=== PATIENT | female | born 1945 | race Caucasian/White ===

== ENCOUNTER 2018-05-17 15:01 | Inpatient (IN) | payer MEDICARE, MEDICAID ==
[~2018-05-17] VITALS: Ht 172.7 cm; Wt 71.8 kg
[2018-05-17] MEDS ORDERED: MORPHINE SULFATE 4 MG/ML CPJ (NOT FOR IM USE) IV STA (16:23)
[2018-05-17] MEDS ORDERED: SODIUM CHLORIDE 0.9% 1,000 ML IV ONE (16:23)
[2018-05-17] MEDS ORDERED: ONDANSETRON HCL 4MG/2ML VIAL IV STA (16:23)
[2018-05-17 16:46] LABS: BASOPHILS % 0.3 % (0.0-2.0); EOSINOPHILS % 0.1 % (0.0-5.0); HEMATOCRIT. 38.4 % (36.0-48.0); HEMOGLOBIN. 12.6 g/dL (12.0-16.0); LYMPHOCYTES % 8.6 % (20.0-50.0); MEAN CORPUSCULAR HEMOGLOBIN 28.9 pg (28.0-32.0); MEAN CORPUSCULAR VOLUME 87.9 fL (81.0-99.0); MEAN PLATELET VOLUME 9.3 fl (7.4-10.4); MONOCYTES % 3.1 % (2.0-8.0); NEUTROPHILS % 87.9 % (40.0-76.0); PLATELET 312 x1000/uL (130-400); RED BLOOD CELL COUNT 4.37 mill/uL (4.2-5.4); RED CELL DISTRIBUTION WIDTH 14.7 % (11.6-14.6)
[2018-05-17 16:52] LABS: CHLORIDE 101 mEq/L (98-107)
[2018-05-17 16:53] LABS: INR 2.8; PROTHROMBIN TIME 27.6 sec (9.1-11.1)
[2018-05-17 17:03] LABS: CREATINE KINASE 137 IU/L (26-192); ETHANOL BLOOD < 10 mg/dL
[2018-05-17 17:14] LABS: CLARITY URINE CLEAR (CLEAR); COLOR URINE YELLOW (YELLOW); KETONES URINE 1+ (NEGATIVE); LEUKOCYTE ESTERASE URINE NEGATIVE (NEGATIVE); NITRITE URINE NEGATIVE (NEGATIVE); OCCULT BLOOD URINE 2+ (NEGATIVE); PH URINE 6.5 (4.5-8.0); PROTEIN URINE NEGATIVE (NEGATIVE); SPECIFIC GRAVITY URINE 1.022 (1.005-1.030); UROBILINOGEN URINE 0.2 E.U./dL (0.2-1.0)
[2018-05-17 17:28] LABS: *AMPHETAMINES SCREEN URINE NEGATIVE (NEGATIVE); *BARBITURATES SCREEN URINE NEGATIVE (NEGATIVE); *BENZODIAZEPINES SCREEN URINE NEGATIVE (NEGATIVE)
[2018-05-17 17:29] LABS: *COCAINE SCREEN URINE NEGATIVE (NEGATIVE); METHADONE URINE SCREEN NEGATIVE (NEGATIVE); OPIATES URINE SCREEN NEGATIVE (NEGATIVE); PHENCYCLIDINE URINE SCREEN NEGATIVE (NEGATIVE)
[2018-05-17 18:04] LABS: CANNABINOID URINE SCREEN NEGATIVE (NEGATIVE)
[2018-05-17] MEDS ORDERED: PIPERACILLIN/TAZ 3.375G PREMIX 50 ML IV ONE (18:15)
[2018-05-17] MEDS ORDERED: VANCOMYCIN 1 G PREMIX 200 ML IV SCH (18:15)
[2018-05-17] MEDS ORDERED: LORAZEPAM 2MG/ML CPJ IV PRN (22:45)
[2018-05-18] VITALS (25 sets, daily range): BP systolic 95–150; BP diastolic 53–85
[2018-05-18] MEDS: AZITHROMYCIN 500 MG TABLET PO SCH ×2 (01:17→21:32)
[2018-05-18] MEDS ORDERED: BENA20TA10 PO (02:55)
[2018-05-18] MEDS ORDERED: WARF7.5T22 PO (02:55)
[2018-05-18] MEDS ORDERED: SIMV10TA6 PO (02:55)
[2018-05-18] MEDS ORDERED: DILT180C66 PO (02:55)
[2018-05-18] MEDS ORDERED: SOTA80TA PO (02:55)
[2018-05-18] MEDS ORDERED: METF850T2 PO (02:55)
[2018-05-18] MEDS ORDERED: MAGN400T27 MT (02:55)
[2018-05-18] MEDS: IPRATROPIUM/ALBUTEROL 0.5-3(2.5)MG/3ML NEB HHN SCH ×2 (03:59→08:49)
[2018-05-18] MEDS: ACETAMINOPHEN 325MG TABLET PO PRN (04:18)
[2018-05-18] MEDS: CEFTRIAXONE 1 G PREMIX 50 ML IV SCH (04:18)
[2018-05-18] MEDS ORDERED: DEXTROSE 50% WATER 50ML SYRINGE IV PRN (05:30)
[2018-05-18] MEDS: BLOOD SUGAR DIAGNOSTIC STRIP TEST SCH ×4 (06:19→21:25)
[2018-05-18] MEDS: INSULIN LISPRO 100 UNITS/ML SUBCUT SCH ×4 (06:28→21:47)
[2018-05-18] MEDS ORDERED: GADOBENATE DIMEGLUMINE 529 MG/ML 10ML IV ONE (07:11)
[2018-05-18 08:39] LABS: BASOPHILS % 0.4 % (0.0-2.0); HEMATOCRIT. 26.8 % (36.0-48.0); HEMOGLOBIN. 8.8 g/dL (12.0-16.0); LYMPHOCYTES % 18.8 % (20.0-50.0); MEAN CORPUSCULAR VOLUME 88.1 fL (81.0-99.0); MEAN PLATELET VOLUME 9.3 fl (7.4-10.4); MONOCYTES % 3.9 % (2.0-8.0); NEUTROPHILS % 76.9 % (40.0-76.0); PLATELET 280 x1000/uL (130-400); RED BLOOD CELL COUNT 3.04 mill/uL (4.2-5.4); RED CELL DISTRIBUTION WIDTH 14.4 % (11.6-14.6)
[2018-05-18] MEDS ORDERED: ENOXAPARIN 40MG/0.4ML SYR SUBCUT SCH (09:00)
[2018-05-18] MEDS: MORPHINE SULFATE 4 MG/ML CPJ (NOT FOR IM USE) IV PRN ×3 (10:20→21:36)
[2018-05-18 11:29] LABS: CHLORIDE 100 mEq/L (98-107)
[2018-05-18 11:33] LABS: INR 2.2; PROTHROMBIN TIME 21.5 sec (9.1-11.1)
[2018-05-18 11:41] LABS: PHOSPHORUS 4.1 mg/dL (2.5-4.9)
[2018-05-18 11:44] LABS: CREATINE KINASE 109 IU/L (26-192)
[2018-05-18 11:47] LABS: CREATINE KINASE MB FRACTION < 0.5 ng/mL (0.5-3.6)
[2018-05-18] MEDS ORDERED: DIGOXIN 500MCG/2ML AMP IV NR (13:15)
[2018-05-18] MEDS ORDERED: IPRATROPIUM/ALBUTEROL 0.5-3(2.5)MG/3ML NEB HHN PRN (13:45)
[2018-05-18 15:43] LABS: CREATINE KINASE 138 IU/L (26-192)
[2018-05-18 15:44] LABS: CREATINE KINASE MB FRACTION < 1.0 ng/mL (0.5-3.6)
[2018-05-18] MEDS: SOTALOL HCL 80MG TABLET PO SCH (17:18)
[2018-05-18] MEDS: DIGOXIN 500MCG/2ML AMP IV SCH (17:18)
[2018-05-18] MEDS ORDERED: WARFARIN SODIUM 4MG TABLET PO SCH (18:00)
[2018-05-18] MEDS ORDERED: WARFARIN SODIUM 7.5MG TABLET PO SCH (18:00)
[2018-05-18] MEDS: ATORVASTATIN CALCIUM 10MG TABLET PO SCH (21:32)
[2018-05-18] MEDS: DILTIAZEM HCL 60MG TABLET PO SCH (21:34)
[2018-05-19] VITALS (70 sets, daily range): BP systolic 81–158; BP diastolic 37–99
[2018-05-19 01:23] LABS: INR 1.6; PROTHROMBIN TIME 15.5 sec (9.1-11.1)
[2018-05-19] MEDS ORDERED: BACLOFEN 10MG TABLET PO SCH (02:18)
[2018-05-19] MEDS: BACLOFEN 10MG TABLET PO SCH ×3 (02:29→17:05)
[2018-05-19] MEDS: CEFTRIAXONE 1 G PREMIX 50 ML IV SCH (03:04)
[2018-05-19] MEDS: SOTALOL HCL 80MG TABLET PO SCH ×2 (05:00→17:07)
[2018-05-19] MEDS: BLOOD SUGAR DIAGNOSTIC STRIP TEST SCH ×4 (06:11→21:38)
[2018-05-19] MEDS: DILTIAZEM HCL 60MG TABLET PO SCH ×3 (06:11→21:38)
[2018-05-19] MEDS: INSULIN LISPRO 100 UNITS/ML SUBCUT SCH ×4 (06:16→21:46)
[2018-05-19] MEDS: MORPHINE SULFATE 4 MG/ML CPJ (NOT FOR IM USE) IV PRN (07:01)
[2018-05-19 08:02] LABS: BASOPHILS % 0.5 % (0.0-2.0); HEMATOCRIT. 23.6 % (36.0-48.0); HEMOGLOBIN. 7.8 g/dL (12.0-16.0); LYMPHOCYTES % 17.2 % (20.0-50.0); MEAN CORPUSCULAR HEMOGLOBIN 29.1 pg (28.0-32.0); MEAN CORPUSCULAR VOLUME 87.6 fL (81.0-99.0); MEAN PLATELET VOLUME 8.8 fl (7.4-10.4); MONOCYTES % 5.8 % (2.0-8.0); NEUTROPHILS % 76.5 % (40.0-76.0); PLATELET 255 x1000/uL (130-400); RED BLOOD CELL COUNT 2.69 mill/uL (4.2-5.4); RED CELL DISTRIBUTION WIDTH 14.5 % (11.6-14.6)
[2018-05-19 08:11] LABS: CHLORIDE 96 mEq/L (98-107)
[2018-05-19 08:16] LABS: PHOSPHORUS 3.1 mg/dL (2.5-4.9)
[2018-05-19] MEDS: METRONIDAZOLE 500 MG PREMIX 100 ML IV SCH ×2 (10:00→17:05)
[2018-05-19] MEDS: LIDOCAINE 5% PATCH TOP SCH (11:30)
[2018-05-19] MEDS: CEFEPIME 2,000 MG in DEXT 5% WATER 100 ML IV SCH (12:00)
[2018-05-19] MEDS ORDERED: MORPHINE SULFATE 4 MG/ML CPJ (NOT FOR IM USE) IV NR ×3 (12:45→18:30)
[2018-05-19] MEDS ORDERED: MIDAZOLAM HCL 5 MG/ML VIAL IV ONE (12:45)
[2018-05-19] MEDS ORDERED: MIDAZOLAM HCL 2 MG/2 ML VIAL IV NR (12:48)
[2018-05-19] MEDS ORDERED: MIDAZOLAM HCL 2 MG/2 ML VIAL IV PRN (13:00)
[2018-05-19] MEDS: BISACODYL 5MG TABLET PO PRN (13:03)
[2018-05-19] MEDS: INSULIN GLARGINE UD 100 UNITS/ML SYR SUBCUT SCH (13:21)
[2018-05-19] MEDS: IPRATROPIUM/ALBUTEROL 0.5-3(2.5)MG/3ML NEB HHN SCH ×2 (16:08→20:37)
[2018-05-19] MEDS: ACETYLCYSTEINE 100MG/ML 10% VIAL 4ML INH SCH (16:09)
[2018-05-19] MEDS: DOCUSATE SODIUM 100MG CAPSULE PO SCH (17:04)
[2018-05-19] MEDS: DIGOXIN 500MCG/2ML AMP IV SCH (17:48)
[2018-05-19 21:00] LABS: HEMATOCRIT 27.9 % (36.0-48.0); HEMOGLOBIN 9.3 g/dL (12.0-16.0)
[2018-05-19] MEDS: ATORVASTATIN CALCIUM 10MG TABLET PO SCH (21:38)
[2018-05-19] MEDS: GUAIFENESIN 600MG ER TABLET PO SCH (21:38)
[2018-05-20] VITALS (48 sets, daily range): BP systolic 93–142; BP diastolic 46–82
[2018-05-20] MEDS: IPRATROPIUM/ALBUTEROL 0.5-3(2.5)MG/3ML NEB HHN SCH ×6 (00:19→20:42)
[2018-05-20] MEDS: ACETYLCYSTEINE 100MG/ML 10% VIAL 4ML INH SCH ×3 (00:20→15:30)
[2018-05-20] MEDS: MORPHINE SULFATE 4 MG/ML CPJ (NOT FOR IM USE) IV PRN ×4 (00:55→22:11)
[2018-05-20] MEDS: METRONIDAZOLE 500 MG PREMIX 100 ML IV SCH ×3 (02:36→17:38)
[2018-05-20] MEDS: SOTALOL HCL 80MG TABLET PO SCH ×2 (05:44→17:15)
[2018-05-20] MEDS: DILTIAZEM HCL 60MG TABLET PO SCH ×3 (05:45→21:21)
[2018-05-20] MEDS: BLOOD SUGAR DIAGNOSTIC STRIP TEST SCH ×4 (05:46→20:29)
[2018-05-20 06:02] LABS: BASOPHILS % 0.4 % (0.0-2.0); EOSINOPHILS % 0.1 % (0.0-5.0); HEMATOCRIT. 27.2 % (36.0-48.0); HEMOGLOBIN. 9.1 g/dL (12.0-16.0); LYMPHOCYTES % 13.7 % (20.0-50.0); MEAN CORPUSCULAR HEMOGLOBIN 29.6 pg (28.0-32.0); MEAN CORPUSCULAR VOLUME 88.3 fL (81.0-99.0); MEAN PLATELET VOLUME 9.3 fl (7.4-10.4); MONOCYTES % 6.3 % (2.0-8.0); NEUTROPHILS % 79.5 % (40.0-76.0); PLATELET 229 x1000/uL (130-400); RED BLOOD CELL COUNT 3.08 mill/uL (4.2-5.4); RED CELL DISTRIBUTION WIDTH 14.2 % (11.6-14.6)
[2018-05-20] MEDS: INSULIN LISPRO 100 UNITS/ML SUBCUT SCH ×4 (06:07→20:30)
[2018-05-20 06:09] LABS: CHLORIDE 97 mEq/L (98-107)
[2018-05-20] MEDS: LIDOCAINE 5% PATCH TOP SCH (08:35)
[2018-05-20] MEDS: BACLOFEN 10MG TABLET PO SCH ×2 (08:36→17:16)
[2018-05-20] MEDS: GUAIFENESIN 600MG ER TABLET PO SCH ×2 (08:36→20:29)
[2018-05-20] MEDS: DOCUSATE SODIUM 100MG CAPSULE PO SCH ×2 (08:36→17:15)
[2018-05-20] MEDS: INSULIN GLARGINE UD 100 UNITS/ML SYR SUBCUT SCH (09:46)
[2018-05-20 10:40] LABS: HEPATITIS B SURFACE ANTIGEN NEGATIVE
[2018-05-20 11:07] LABS: HEPATITIS B CORE AB IGM NEGATIVE
[2018-05-20 11:09] LABS: HEPATITIS A AB IGM NEGATIVE (NEGATIVE)
[2018-05-20] MEDS: CEFEPIME 2,000 MG in DEXT 5% WATER 100 ML IV SCH (11:31)
[2018-05-20] MEDS: DIGOXIN 500MCG/2ML AMP IV SCH (17:30)
[2018-05-20] MEDS: ATORVASTATIN CALCIUM 10MG TABLET PO SCH (20:29)
[2018-05-20] MEDS: ONDANSETRON HCL 4MG/2ML VIAL IV PRN (22:11)
[2018-05-21] VITALS (48 sets, daily range): BP systolic 107–159; BP diastolic 56–88
[2018-05-21] MEDS: IPRATROPIUM/ALBUTEROL 0.5-3(2.5)MG/3ML NEB HHN SCH ×6 (00:16→20:36)
[2018-05-21] MEDS: ACETYLCYSTEINE 100MG/ML 10% VIAL 4ML INH SCH ×3 (00:17→15:30)
[2018-05-21] MEDS: METRONIDAZOLE 500 MG PREMIX 100 ML IV SCH ×3 (01:44→17:53)
[2018-05-21] MEDS: ONDANSETRON HCL 4MG/2ML VIAL IV PRN (03:45)
[2018-05-21] MEDS: MORPHINE SULFATE 4 MG/ML CPJ (NOT FOR IM USE) IV PRN ×3 (03:46→17:20)
[2018-05-21] MEDS: SOTALOL HCL 80MG TABLET PO SCH ×2 (04:21→17:19)
[2018-05-21] MEDS: DILTIAZEM HCL 60MG TABLET PO SCH ×3 (06:13→22:00)
[2018-05-21] MEDS: INSULIN LISPRO 100 UNITS/ML SUBCUT SCH ×4 (06:14→22:01)
[2018-05-21] MEDS: BLOOD SUGAR DIAGNOSTIC STRIP TEST SCH ×4 (06:14→21:55)
[2018-05-21] MEDS: DOCUSATE SODIUM 100MG CAPSULE PO SCH ×2 (08:48→17:19)
[2018-05-21] MEDS: BACLOFEN 10MG TABLET PO SCH ×2 (08:48→17:19)
[2018-05-21] MEDS: GUAIFENESIN 600MG ER TABLET PO SCH ×2 (08:48→22:02)
[2018-05-21] MEDS: LIDOCAINE 5% PATCH TOP SCH (09:34)
[2018-05-21 11:27] LABS: CHLORIDE 101 mEq/L (98-107)
[2018-05-21 11:28] LABS: BASOPHILS % 0.9 % (0.0-2.0); EOSINOPHILS % 0.2 % (0.0-5.0); HEMOGLOBIN. 8.6 g/dL (12.0-16.0); LYMPHOCYTES % 20.8 % (20.0-50.0); MEAN CORPUSCULAR HEMOGLOBIN 29.9 pg (28.0-32.0); MEAN CORPUSCULAR VOLUME 90.2 fL (81.0-99.0); MEAN PLATELET VOLUME 9.5 fl (7.4-10.4); MONOCYTES % 8.3 % (2.0-8.0); NEUTROPHILS % 69.8 % (40.0-76.0); PLATELET 235 x1000/uL (130-400); RED BLOOD CELL COUNT 2.88 mill/uL (4.2-5.4); RED CELL DISTRIBUTION WIDTH 14.7 % (11.6-14.6)
[2018-05-21] MEDS: CEFEPIME 2,000 MG in DEXT 5% WATER 100 ML IV SCH (12:08)
[2018-05-21] MEDS: INSULIN GLARGINE UD 100 UNITS/ML SYR SUBCUT SCH (12:08)
[2018-05-21] MEDS: LACTULOSE 20G/30ML UDC PO PRN (15:18)
[2018-05-21] MEDS: DIGOXIN 500MCG/2ML AMP IV SCH (17:53)
[2018-05-21] MEDS: ATORVASTATIN CALCIUM 10MG TABLET PO SCH (22:00)
[2018-05-22] VITALS (48 sets, daily range): BP systolic 110–160; BP diastolic 57–82
[2018-05-22] MEDS: ACETYLCYSTEINE 100MG/ML 10% VIAL 4ML INH SCH ×3 (00:40→16:17)
[2018-05-22] MEDS: IPRATROPIUM/ALBUTEROL 0.5-3(2.5)MG/3ML NEB HHN SCH ×6 (00:40→21:22)
[2018-05-22] MEDS: METRONIDAZOLE 500 MG PREMIX 100 ML IV SCH ×3 (01:27→17:18)
[2018-05-22] MEDS: MORPHINE SULFATE 4 MG/ML CPJ (NOT FOR IM USE) IV PRN ×4 (01:28→21:52)
[2018-05-22] MEDS: ONDANSETRON HCL 4MG/2ML VIAL IV PRN (02:32)
[2018-05-22] MEDS: HYDROCODONE/ACETAMINOPHEN 5/325MG TABLET PO PRN (02:33)
[2018-05-22] MEDS: SOTALOL HCL 80MG TABLET PO SCH ×2 (05:08→17:18)
[2018-05-22] MEDS: DILTIAZEM HCL 60MG TABLET PO SCH ×3 (05:09→21:14)
[2018-05-22 05:35] LABS: BASOPHILS % 0.3 % (0.0-2.0); EOSINOPHILS % 0.4 % (0.0-5.0); HEMATOCRIT. 29.5 % (36.0-48.0); HEMOGLOBIN. 9.5 g/dL (12.0-16.0); MEAN CORPUSCULAR HEMOGLOBIN 29.4 pg (28.0-32.0); MONOCYTES % 8.8 % (2.0-8.0); NEUTROPHILS % 72.5 % (40.0-76.0); RED BLOOD CELL COUNT 3.24 mill/uL (4.2-5.4); RED CELL DISTRIBUTION WIDTH 14.5 % (11.6-14.6)
[2018-05-22 05:52] LABS: CHLORIDE 98 mEq/L (98-107)
[2018-05-22] MEDS: BLOOD SUGAR DIAGNOSTIC STRIP TEST SCH ×4 (06:15→20:43)
[2018-05-22] MEDS: INSULIN LISPRO 100 UNITS/ML SUBCUT SCH ×4 (06:23→21:15)
[2018-05-22] MEDS: GUAIFENESIN 600MG ER TABLET PO SCH ×2 (08:30→21:13)
[2018-05-22] MEDS: DOCUSATE SODIUM 100MG CAPSULE PO SCH ×2 (08:30→17:18)
[2018-05-22] MEDS: BACLOFEN 10MG TABLET PO SCH ×2 (08:30→17:20)
[2018-05-22] MEDS: LIDOCAINE 5% PATCH TOP SCH (09:44)
[2018-05-22] MEDS: INSULIN GLARGINE UD 100 UNITS/ML SYR SUBCUT SCH (10:32)
[2018-05-22 11:25] LABS: PLATELET 246 x1000/uL (130-400)
[2018-05-22] MEDS: BISACODYL 5MG TABLET PO PRN (12:07)
[2018-05-22] MEDS: CEFEPIME 2,000 MG in DEXT 5% WATER 100 ML IV SCH (12:07)
[2018-05-22] MEDS: LACTULOSE 20G/30ML UDC PO PRN (17:18)
[2018-05-22] MEDS: DIGOXIN 500MCG/2ML AMP IV SCH (17:18)
[2018-05-22] MEDS: ATORVASTATIN CALCIUM 10MG TABLET PO SCH (21:13)
[2018-05-23] VITALS (43 sets, daily range): BP systolic 112–165; BP diastolic 57–93
[2018-05-23] MEDS: IPRATROPIUM/ALBUTEROL 0.5-3(2.5)MG/3ML NEB HHN SCH ×6 (01:47→20:27)
[2018-05-23] MEDS: ACETYLCYSTEINE 100MG/ML 10% VIAL 4ML INH SCH ×2 (01:47→16:46)
[2018-05-23] MEDS: METRONIDAZOLE 500 MG PREMIX 100 ML IV SCH ×3 (01:54→17:01)
[2018-05-23] MEDS: MORPHINE SULFATE 4 MG/ML CPJ (NOT FOR IM USE) IV PRN ×4 (01:55→21:11)
[2018-05-23] MEDS: SOTALOL HCL 80MG TABLET PO SCH ×2 (05:06→16:45)
[2018-05-23] MEDS: DILTIAZEM HCL 60MG TABLET PO SCH ×3 (05:06→21:10)
[2018-05-23 05:47] LABS: BASOPHILS % 0.5 % (0.0-2.0); EOSINOPHILS % 0.7 % (0.0-5.0); HEMATOCRIT. 26.6 % (36.0-48.0); HEMOGLOBIN. 8.9 g/dL (12.0-16.0); LYMPHOCYTES % 16.6 % (20.0-50.0); MEAN CORPUSCULAR HEMOGLOBIN 30.1 pg (28.0-32.0); MEAN CORPUSCULAR VOLUME 90.2 fL (81.0-99.0); MEAN PLATELET VOLUME 8.9 fl (7.4-10.4); MONOCYTES % 8.9 % (2.0-8.0); NEUTROPHILS % 73.3 % (40.0-76.0); PLATELET 272 x1000/uL (130-400); RED BLOOD CELL COUNT 2.95 mill/uL (4.2-5.4); RED CELL DISTRIBUTION WIDTH 14.6 % (11.6-14.6)
[2018-05-23 06:13] LABS: CHLORIDE 95 mEq/L (98-107)
[2018-05-23] MEDS: BLOOD SUGAR DIAGNOSTIC STRIP TEST SCH ×4 (06:22→20:59)
[2018-05-23] MEDS: INSULIN LISPRO 100 UNITS/ML SUBCUT SCH ×4 (06:23→21:12)
[2018-05-23] MEDS: HYDROCODONE/ACETAMINOPHEN 5/325MG TABLET PO PRN (09:04)
[2018-05-23] MEDS: GUAIFENESIN 600MG ER TABLET PO SCH ×2 (09:05→21:10)
[2018-05-23] MEDS: DOCUSATE SODIUM 100MG CAPSULE PO SCH ×2 (09:05→16:46)
[2018-05-23] MEDS: BACLOFEN 10MG TABLET PO SCH ×2 (09:05→16:46)
[2018-05-23] MEDS: LIDOCAINE 5% PATCH TOP SCH (09:07)
[2018-05-23] MEDS ORDERED: SORBITOL 70% SOLN 30ML PO SCH ×2 (09:45→13:45)
[2018-05-23] MEDS: INSULIN GLARGINE UD 100 UNITS/ML SYR SUBCUT SCH (11:00)
[2018-05-23] MEDS: CEFEPIME 2,000 MG in DEXT 5% WATER 100 ML IV SCH (12:39)
[2018-05-23] MEDS ORDERED: POTASSIUM CHLORIDE INJ 40 MEQ in DEXT 5% WATER 250 ML IV ONE ×2 (13:00→17:00)
[2018-05-23] MEDS: DIGOXIN 500MCG/2ML AMP IV SCH (17:01)
[2018-05-23] MEDS: ATORVASTATIN CALCIUM 10MG TABLET PO SCH (21:10)
[2018-05-24] VITALS (34 sets, daily range): BP systolic 102–157; BP diastolic 57–93
[2018-05-24] MEDS: ACETYLCYSTEINE 100MG/ML 10% VIAL 4ML INH SCH ×3 (00:12→15:18)
[2018-05-24] MEDS: IPRATROPIUM/ALBUTEROL 0.5-3(2.5)MG/3ML NEB HHN SCH ×6 (00:13→20:33)
[2018-05-24] MEDS: METRONIDAZOLE 500 MG PREMIX 100 ML IV SCH ×3 (02:20→17:26)
[2018-05-24 04:45] LABS: BASOPHILS % 0.4 % (0.0-2.0); EOSINOPHILS % 0.5 % (0.0-5.0); HEMATOCRIT. 29.4 % (36.0-48.0); HEMOGLOBIN. 9.6 g/dL (12.0-16.0); LYMPHOCYTES % 14.4 % (20.0-50.0); MEAN CORPUSCULAR HEMOGLOBIN 29.4 pg (28.0-32.0); MEAN CORPUSCULAR VOLUME 90.3 fL (81.0-99.0); MEAN PLATELET VOLUME 8.9 fl (7.4-10.4); MONOCYTES % 8.1 % (2.0-8.0); NEUTROPHILS % 76.6 % (40.0-76.0); PLATELET 329 x1000/uL (130-400); RED BLOOD CELL COUNT 3.26 mill/uL (4.2-5.4); RED CELL DISTRIBUTION WIDTH 14.6 % (11.6-14.6)
[2018-05-24 04:51] LABS: CHLORIDE 94 mEq/L (98-107)
[2018-05-24 05:14] LABS: DIGOXIN 0.6 ng/mL (0.9-2.0)
[2018-05-24] MEDS: DILTIAZEM HCL 60MG TABLET PO SCH ×3 (05:16→21:19)
[2018-05-24] MEDS: SOTALOL HCL 80MG TABLET PO SCH ×2 (05:17→16:31)
[2018-05-24] MEDS: BLOOD SUGAR DIAGNOSTIC STRIP TEST SCH ×4 (06:00→21:20)
[2018-05-24] MEDS: INSULIN LISPRO 100 UNITS/ML SUBCUT SCH ×4 (06:33→21:18)
[2018-05-24] MEDS: BACLOFEN 10MG TABLET PO SCH ×2 (08:19→16:31)
[2018-05-24] MEDS: LIDOCAINE 5% PATCH TOP SCH (08:19)
[2018-05-24] MEDS: GUAIFENESIN 600MG ER TABLET PO SCH ×2 (08:19→21:14)
[2018-05-24] MEDS: MORPHINE SULFATE 4 MG/ML CPJ (NOT FOR IM USE) IV PRN ×3 (08:19→17:24)
[2018-05-24] MEDS: DOCUSATE SODIUM 100MG CAPSULE PO SCH ×2 (08:20→16:31)
[2018-05-24] MEDS ORDERED: BISACODYL 10MG SUPP PR NR (08:30)
[2018-05-24] MEDS ORDERED: SORBITOL 70% SOLN 30ML PO SCH (08:30)
[2018-05-24] MEDS: INSULIN GLARGINE UD 100 UNITS/ML SYR SUBCUT SCH (10:01)
[2018-05-24] MEDS: CEFEPIME 2,000 MG in DEXT 5% WATER 100 ML IV SCH (11:35)
[2018-05-24] MEDS: HYDROCODONE/APAP 7.5/325MG 1 TAB TABLET PO PRN (16:32)
[2018-05-24] MEDS: DIGOXIN 500MCG/2ML AMP IV SCH (17:26)
[2018-05-24] MEDS: ATORVASTATIN CALCIUM 10MG TABLET PO SCH (21:14)
[2018-05-25] VITALS (47 sets, daily range): BP systolic 90–145; BP diastolic 37–79
[2018-05-25] MEDS: IPRATROPIUM/ALBUTEROL 0.5-3(2.5)MG/3ML NEB HHN SCH ×6 (00:44→20:14)
[2018-05-25] MEDS: METRONIDAZOLE 500 MG PREMIX 100 ML IV SCH ×3 (04:00→17:45)
[2018-05-25] MEDS: HYDROCODONE/APAP 7.5/325MG 1 TAB TABLET PO PRN (04:15)
[2018-05-25 05:44] LABS: BASOPHILS % 0.4 % (0.0-2.0); EOSINOPHILS % 1.2 % (0.0-5.0); HEMATOCRIT. 27.4 % (36.0-48.0); HEMOGLOBIN. 9.2 g/dL (12.0-16.0); LYMPHOCYTES % 12.2 % (20.0-50.0); MEAN CORPUSCULAR HEMOGLOBIN 30.2 pg (28.0-32.0); MEAN CORPUSCULAR VOLUME 90.1 fL (81.0-99.0); MEAN PLATELET VOLUME 8.7 fl (7.4-10.4); MONOCYTES % 8.4 % (2.0-8.0); NEUTROPHILS % 77.8 % (40.0-76.0); PLATELET 305 x1000/uL (130-400); RED BLOOD CELL COUNT 3.05 mill/uL (4.2-5.4); RED CELL DISTRIBUTION WIDTH 14.6 % (11.6-14.6)
[2018-05-25 05:51] LABS: CHLORIDE 93 mEq/L (98-107)
[2018-05-25] MEDS: DILTIAZEM HCL 60MG TABLET PO SCH (06:49)
[2018-05-25] MEDS: SOTALOL HCL 80MG TABLET PO SCH ×2 (06:50→17:45)
[2018-05-25] MEDS: INSULIN LISPRO 100 UNITS/ML SUBCUT SCH ×4 (06:51→21:34)
[2018-05-25] MEDS: BLOOD SUGAR DIAGNOSTIC STRIP TEST SCH ×4 (06:51→21:34)
[2018-05-25] MEDS: BACLOFEN 10MG TABLET PO SCH ×2 (08:22→17:46)
[2018-05-25] MEDS: DOCUSATE SODIUM 100MG CAPSULE PO SCH ×2 (08:22→17:45)
[2018-05-25] MEDS: GUAIFENESIN 600MG ER TABLET PO SCH ×2 (08:23→21:32)
[2018-05-25] MEDS: LIDOCAINE 5% PATCH TOP SCH (08:23)
[2018-05-25] MEDS ORDERED: BISACODYL 10MG SUPP PR PRN (09:00)
[2018-05-25] MEDS: INSULIN GLARGINE UD 100 UNITS/ML SYR SUBCUT SCH (09:35)
[2018-05-25] MEDS: MORPHINE SULFATE 4 MG/ML CPJ (NOT FOR IM USE) IV PRN (12:06)
[2018-05-25] MEDS: CEFEPIME 2,000 MG in DEXT 5% WATER 100 ML IV SCH (12:27)
[2018-05-25] MEDS: DILTIAZEM HCL 30MG TABLET PO SCH ×2 (13:31→21:33)
[2018-05-25] MEDS: DIGOXIN 500MCG/2ML AMP IV SCH (17:46)
[2018-05-25] MEDS: ATORVASTATIN CALCIUM 10MG TABLET PO SCH (21:32)
[2018-05-26] VITALS (29 sets, daily range): BP systolic 104–172; BP diastolic 35–91
[2018-05-26] MEDS: HYDROCODONE/APAP 7.5/325MG 1 TAB TABLET PO PRN (00:03)
[2018-05-26] MEDS: IPRATROPIUM/ALBUTEROL 0.5-3(2.5)MG/3ML NEB HHN SCH ×6 (00:15→22:13)
[2018-05-26] MEDS: METRONIDAZOLE 500 MG PREMIX 100 ML IV SCH ×2 (03:18→10:01)
[2018-05-26 05:11] LABS: BASOPHILS % 0.2 % (0.0-2.0); EOSINOPHILS % 0.7 % (0.0-5.0); HEMATOCRIT. 28.8 % (36.0-48.0); HEMOGLOBIN. 9.6 g/dL (12.0-16.0); LYMPHOCYTES % 19.7 % (20.0-50.0); MEAN CORPUSCULAR HEMOGLOBIN 29.8 pg (28.0-32.0); MEAN CORPUSCULAR VOLUME 89.8 fL (81.0-99.0); MEAN PLATELET VOLUME 8.6 fl (7.4-10.4); MONOCYTES % 8.2 % (2.0-8.0); NEUTROPHILS % 71.2 % (40.0-76.0); PLATELET 356 x1000/uL (130-400); RED BLOOD CELL COUNT 3.21 mill/uL (4.2-5.4); RED CELL DISTRIBUTION WIDTH 14.7 % (11.6-14.6)
[2018-05-26 05:17] LABS: CHLORIDE 97 mEq/L (98-107)
[2018-05-26] MEDS: DILTIAZEM HCL 30MG TABLET PO SCH ×3 (05:46→21:32)
[2018-05-26] MEDS: SOTALOL HCL 80MG TABLET PO SCH ×2 (05:46→16:16)
[2018-05-26] MEDS: BLOOD SUGAR DIAGNOSTIC STRIP TEST SCH ×4 (05:47→21:37)
[2018-05-26] MEDS: INSULIN LISPRO 100 UNITS/ML SUBCUT SCH ×4 (05:51→21:38)
[2018-05-26] MEDS: DOCUSATE SODIUM 100MG CAPSULE PO SCH ×2 (10:00→16:16)
[2018-05-26] MEDS: BACLOFEN 10MG TABLET PO SCH ×2 (10:00→16:15)
[2018-05-26] MEDS: LIDOCAINE 5% PATCH TOP SCH (10:02)
[2018-05-26] MEDS: GUAIFENESIN 600MG ER TABLET PO SCH ×2 (10:08→21:31)
[2018-05-26] MEDS: INSULIN GLARGINE UD 100 UNITS/ML SYR SUBCUT SCH (10:09)
[2018-05-26] MEDS: MORPHINE SULFATE 4 MG/ML CPJ (NOT FOR IM USE) IV PRN ×2 (11:53→16:16)
[2018-05-26] MEDS: CEFEPIME 2,000 MG in DEXT 5% WATER 100 ML IV SCH (11:54)
[2018-05-26] MEDS: DIGOXIN 500MCG/2ML AMP IV SCH (17:45)
[2018-05-26] MEDS: ATORVASTATIN CALCIUM 10MG TABLET PO SCH (21:31)
[2018-05-26] MEDS: METRONIDAZOLE 500MG TABLET PO SCH (21:32)
[2018-05-27] VITALS (13 sets, daily range): BP systolic 99–160; BP diastolic 52–79
[2018-05-27] MEDS: IPRATROPIUM/ALBUTEROL 0.5-3(2.5)MG/3ML NEB HHN SCH ×6 (01:14→21:03)
[2018-05-27] MEDS: SOTALOL HCL 80MG TABLET PO SCH ×2 (05:09→17:00)
[2018-05-27] MEDS: DILTIAZEM HCL 30MG TABLET PO SCH ×3 (05:10→20:58)
[2018-05-27 07:05] LABS: CHLORIDE 99 mEq/L (98-107)
[2018-05-27 07:13] LABS: PHOSPHORUS 2.4 mg/dL (2.5-4.9)
[2018-05-27 07:44] LABS: BASOPHILS % 0.5 % (0.0-2.0); EOSINOPHILS % 1.2 % (0.0-5.0); HEMATOCRIT. 27.1 % (36.0-48.0); LYMPHOCYTES % 15.6 % (20.0-50.0); MEAN CORPUSCULAR HEMOGLOBIN 29.7 pg (28.0-32.0); MEAN CORPUSCULAR VOLUME 89.7 fL (81.0-99.0); MEAN PLATELET VOLUME 8.6 fl (7.4-10.4); MONOCYTES % 8.4 % (2.0-8.0); NEUTROPHILS % 74.3 % (40.0-76.0); PLATELET 349 x1000/uL (130-400); RED BLOOD CELL COUNT 3.03 mill/uL (4.2-5.4); RED CELL DISTRIBUTION WIDTH 15.1 % (11.6-14.6)
[2018-05-27] MEDS: BLOOD SUGAR DIAGNOSTIC STRIP TEST SCH ×4 (08:22→21:08)
[2018-05-27] MEDS: INSULIN LISPRO 100 UNITS/ML SUBCUT SCH ×4 (08:37→21:10)
[2018-05-27] MEDS: INSULIN GLARGINE UD 100 UNITS/ML SYR SUBCUT SCH (09:17)
[2018-05-27] MEDS ORDERED: SODIUM PHOS,M-BASIC-D-BASIC 15 MM in DEXT 5% WATER 245 ML IV NR (09:30)
[2018-05-27] MEDS: DOCUSATE SODIUM 100MG CAPSULE PO SCH ×2 (09:43→17:51)
[2018-05-27] MEDS: BACLOFEN 10MG TABLET PO SCH ×2 (09:43→17:51)
[2018-05-27] MEDS: METRONIDAZOLE 500MG TABLET PO SCH ×2 (09:43→20:59)
[2018-05-27] MEDS: GUAIFENESIN 600MG ER TABLET PO SCH ×2 (09:43→20:58)
[2018-05-27] MEDS: CEFEPIME 1,000 MG in DEXTROSE 5% WATER 50 ML IV SCH (10:40)
[2018-05-27] MEDS: LIDOCAINE 5% PATCH TOP SCH (10:40)
[2018-05-27] MEDS: DIGOXIN 125MCG TABLET PO SCH (17:51)
[2018-05-27] MEDS: ATORVASTATIN CALCIUM 10MG TABLET PO SCH (20:58)
[2018-05-27] MEDS: HYDROCODONE/APAP 7.5/325MG 1 TAB TABLET PO PRN (21:05)
[2018-05-28] VITALS (11 sets, daily range): BP systolic 113–143; BP diastolic 64–77
[2018-05-28] MEDS: IPRATROPIUM/ALBUTEROL 0.5-3(2.5)MG/3ML NEB HHN SCH ×5 (01:01→20:22)
[2018-05-28] MEDS: SOTALOL HCL 80MG TABLET PO SCH ×2 (05:36→18:28)
[2018-05-28] MEDS: DILTIAZEM HCL 30MG TABLET PO SCH ×3 (05:36→22:02)
[2018-05-28 08:01] LABS: BASOPHILS % 0.5 % (0.0-2.0); EOSINOPHILS % 1.3 % (0.0-5.0); HEMATOCRIT. 29.8 % (36.0-48.0); LYMPHOCYTES % 16.7 % (20.0-50.0); MEAN CORPUSCULAR HEMOGLOBIN 30.2 pg (28.0-32.0); MEAN CORPUSCULAR VOLUME 90.3 fL (81.0-99.0); MEAN PLATELET VOLUME 9.9 fl (7.4-10.4); MONOCYTES % 7.7 % (2.0-8.0); NEUTROPHILS % 73.8 % (40.0-76.0); PLATELET 207 x1000/uL (130-400); RED CELL DISTRIBUTION WIDTH 15.5 % (11.6-14.6)
[2018-05-28 08:12] LABS: CHLORIDE 100 mEq/L (98-107)
[2018-05-28 08:33] LABS: PHOSPHORUS 2.8 mg/dL (2.5-4.9)
[2018-05-28] MEDS: DOCUSATE SODIUM 100MG CAPSULE PO SCH ×2 (10:07→18:25)
[2018-05-28] MEDS: METRONIDAZOLE 500MG TABLET PO SCH ×2 (10:07→22:02)
[2018-05-28] MEDS: GUAIFENESIN 600MG ER TABLET PO SCH ×2 (10:08→22:02)
[2018-05-28] MEDS: BACLOFEN 10MG TABLET PO SCH ×2 (10:08→18:25)
[2018-05-28] MEDS: LIDOCAINE 5% PATCH TOP SCH (10:09)
[2018-05-28] MEDS: INSULIN GLARGINE UD 100 UNITS/ML SYR SUBCUT SCH (10:22)
[2018-05-28] MEDS: BLOOD SUGAR DIAGNOSTIC STRIP TEST SCH ×3 (12:56→21:00)
[2018-05-28] MEDS: INSULIN LISPRO 100 UNITS/ML SUBCUT SCH ×3 (13:07→22:29)
[2018-05-28] MEDS: CEFEPIME 1,000 MG in DEXTROSE 5% WATER 50 ML IV SCH (13:08)
[2018-05-28] MEDS: MORPHINE SULFATE 4 MG/ML CPJ (NOT FOR IM USE) IV PRN (15:25)
[2018-05-28] MEDS: DIGOXIN 125MCG TABLET PO SCH (18:25)
[2018-05-28] MEDS: ATORVASTATIN CALCIUM 10MG TABLET PO SCH (22:02)
[2018-05-29] VITALS (12 sets, daily range): BP systolic 112–144; BP diastolic 58–85
[2018-05-29] MEDS: IPRATROPIUM/ALBUTEROL 0.5-3(2.5)MG/3ML NEB HHN SCH ×6 (00:12→20:22)
[2018-05-29] MEDS: MORPHINE SULFATE 4 MG/ML CPJ (NOT FOR IM USE) IV PRN (01:33)
[2018-05-29] MEDS: SOTALOL HCL 80MG TABLET PO SCH ×2 (05:47→17:43)
[2018-05-29] MEDS: DILTIAZEM HCL 30MG TABLET PO SCH ×3 (06:58→21:01)
[2018-05-29] MEDS: BLOOD SUGAR DIAGNOSTIC STRIP TEST SCH ×4 (07:39→21:00)
[2018-05-29] MEDS: LIDOCAINE 5% PATCH TOP SCH (08:39)
[2018-05-29] MEDS: METRONIDAZOLE 500MG TABLET PO SCH ×2 (08:40→21:01)
[2018-05-29] MEDS: DOCUSATE SODIUM 100MG CAPSULE PO SCH ×2 (08:40→17:43)
[2018-05-29] MEDS: GUAIFENESIN 600MG ER TABLET PO SCH ×2 (08:40→21:01)
[2018-05-29] MEDS: BACLOFEN 10MG TABLET PO SCH ×2 (08:40→17:43)
[2018-05-29] MEDS: INSULIN LISPRO 100 UNITS/ML SUBCUT SCH ×4 (08:41→21:02)
[2018-05-29] MEDS: CEFEPIME 1,000 MG in DEXTROSE 5% WATER 50 ML IV SCH (10:45)
[2018-05-29] MEDS: INSULIN GLARGINE UD 100 UNITS/ML SYR SUBCUT SCH (10:45)
[2018-05-29] MEDS: DIGOXIN 125MCG TABLET PO SCH (17:43)
[2018-05-29] MEDS: ATORVASTATIN CALCIUM 10MG TABLET PO SCH (21:01)
[2018-05-30] VITALS (12 sets, daily range): BP systolic 119–145; BP diastolic 63–89
[2018-05-30] MEDS: IPRATROPIUM/ALBUTEROL 0.5-3(2.5)MG/3ML NEB HHN SCH ×6 (00:25→23:54)
[2018-05-30] MEDS: ACETAMINOPHEN 325MG TABLET PO PRN (01:13)
[2018-05-30] MEDS: DILTIAZEM HCL 30MG TABLET PO SCH ×3 (05:48→21:59)
[2018-05-30] MEDS: SOTALOL HCL 80MG TABLET PO SCH ×2 (05:49→17:23)
[2018-05-30 06:17] LABS: BASOPHILS % 0.5 % (0.0-2.0); EOSINOPHILS % 1.6 % (0.0-5.0); HEMATOCRIT. 28.4 % (36.0-48.0); HEMOGLOBIN. 9.5 g/dL (12.0-16.0); LYMPHOCYTES % 22.2 % (20.0-50.0); MEAN CORPUSCULAR HEMOGLOBIN 29.5 pg (28.0-32.0); MEAN CORPUSCULAR VOLUME 88.7 fL (81.0-99.0); MEAN PLATELET VOLUME 8.2 fl (7.4-10.4); NEUTROPHILS % 67.7 % (40.0-76.0); PLATELET 375 x1000/uL (130-400); RED CELL DISTRIBUTION WIDTH 15.4 % (11.6-14.6)
[2018-05-30 06:35] LABS: CHLORIDE 100 mEq/L (98-107)
[2018-05-30 06:41] LABS: PHOSPHORUS 2.9 mg/dL (2.5-4.9)
[2018-05-30] MEDS: BLOOD SUGAR DIAGNOSTIC STRIP TEST SCH ×4 (08:11→20:47)
[2018-05-30] MEDS: DOCUSATE SODIUM 100MG CAPSULE PO SCH ×2 (08:11→17:23)
[2018-05-30] MEDS: GUAIFENESIN 600MG ER TABLET PO SCH ×2 (08:11→20:45)
[2018-05-30] MEDS: BACLOFEN 10MG TABLET PO SCH ×2 (08:11→17:23)
[2018-05-30] MEDS: METRONIDAZOLE 500MG TABLET PO SCH ×2 (08:11→20:45)
[2018-05-30] MEDS: INSULIN LISPRO 100 UNITS/ML SUBCUT SCH ×4 (08:12→20:46)
[2018-05-30] MEDS: LIDOCAINE 5% PATCH TOP SCH (08:14)
[2018-05-30] MEDS: CEFEPIME 1,000 MG in DEXTROSE 5% WATER 50 ML IV SCH (10:41)
[2018-05-30] MEDS: INSULIN GLARGINE UD 100 UNITS/ML SYR SUBCUT SCH (10:41)
[2018-05-30] MEDS: DIGOXIN 125MCG TABLET PO SCH (17:23)
[2018-05-30] MEDS: ATORVASTATIN CALCIUM 10MG TABLET PO SCH (20:45)
[2018-05-31] VITALS (12 sets, daily range): BP systolic 111–157; BP diastolic 61–87
[2018-05-31] MEDS: IPRATROPIUM/ALBUTEROL 0.5-3(2.5)MG/3ML NEB HHN SCH ×5 (03:33→21:14)
[2018-05-31] MEDS: DILTIAZEM HCL 30MG TABLET PO SCH ×3 (05:30→22:29)
[2018-05-31] MEDS: SOTALOL HCL 80MG TABLET PO SCH ×2 (05:30→18:14)
[2018-05-31] MEDS: INSULIN LISPRO 100 UNITS/ML SUBCUT SCH ×4 (08:00→21:00)
[2018-05-31] MEDS: BLOOD SUGAR DIAGNOSTIC STRIP TEST SCH ×4 (08:29→20:57)
[2018-05-31] MEDS: LIDOCAINE 5% PATCH TOP SCH (08:51)
[2018-05-31] MEDS: GUAIFENESIN 600MG ER TABLET PO SCH ×2 (08:51→20:56)
[2018-05-31] MEDS: BACLOFEN 10MG TABLET PO SCH ×2 (08:51→18:14)
[2018-05-31] MEDS: DOCUSATE SODIUM 100MG CAPSULE PO SCH ×2 (08:51→18:14)
[2018-05-31] MEDS: METRONIDAZOLE 500MG TABLET PO SCH ×2 (08:51→20:56)
[2018-05-31] MEDS: INSULIN GLARGINE UD 100 UNITS/ML SYR SUBCUT SCH (10:27)
[2018-05-31] MEDS: CEFEPIME 1,000 MG in DEXTROSE 5% WATER 50 ML IV SCH (11:34)
[2018-05-31] MEDS: DIGOXIN 125MCG TABLET PO SCH (18:13)
[2018-05-31] MEDS: ATORVASTATIN CALCIUM 10MG TABLET PO SCH (20:56)
[2018-06-01] VITALS (13 sets, daily range): BP systolic 113–141; BP diastolic 60–79
[2018-06-01] MEDS: IPRATROPIUM/ALBUTEROL 0.5-3(2.5)MG/3ML NEB HHN SCH ×6 (00:34→16:09)
[2018-06-01] MEDS: DILTIAZEM HCL 30MG TABLET PO SCH ×3 (05:40→21:41)
[2018-06-01] MEDS: SOTALOL HCL 80MG TABLET PO SCH ×2 (05:40→17:50)
[2018-06-01 07:10] LABS: BASOPHILS % 0.7 % (0.0-2.0); EOSINOPHILS % 1.7 % (0.0-5.0); HEMATOCRIT. 27.9 % (36.0-48.0); HEMOGLOBIN. 9.3 g/dL (12.0-16.0); LYMPHOCYTES % 21.2 % (20.0-50.0); MEAN CORPUSCULAR HEMOGLOBIN 29.3 pg (28.0-32.0); MEAN CORPUSCULAR VOLUME 87.9 fL (81.0-99.0); MEAN PLATELET VOLUME 8.3 fl (7.4-10.4); MONOCYTES % 8.1 % (2.0-8.0); NEUTROPHILS % 68.3 % (40.0-76.0); PLATELET 443 x1000/uL (130-400); RED BLOOD CELL COUNT 3.17 mill/uL (4.2-5.4); RED CELL DISTRIBUTION WIDTH 15.4 % (11.6-14.6)
[2018-06-01] MEDS: BLOOD SUGAR DIAGNOSTIC STRIP TEST SCH ×4 (08:19→21:41)
[2018-06-01] MEDS: DOCUSATE SODIUM 100MG CAPSULE PO SCH ×2 (08:27→17:50)
[2018-06-01] MEDS: METRONIDAZOLE 500MG TABLET PO SCH ×2 (08:27→21:41)
[2018-06-01] MEDS: BACLOFEN 10MG TABLET PO SCH ×2 (08:27→17:50)
[2018-06-01] MEDS: GUAIFENESIN 600MG ER TABLET PO SCH ×2 (08:27→21:41)
[2018-06-01] MEDS: LIDOCAINE 5% PATCH TOP SCH (08:29)
[2018-06-01] MEDS: INSULIN LISPRO 100 UNITS/ML SUBCUT SCH ×4 (08:38→21:48)
[2018-06-01 08:57] LABS: CHLORIDE 101 mEq/L (98-107)
[2018-06-01 09:04] LABS: PHOSPHORUS 2.9 mg/dL (2.5-4.9)
[2018-06-01] MEDS: CEFEPIME 1,000 MG in DEXTROSE 5% WATER 50 ML IV SCH (11:21)
[2018-06-01] MEDS: INSULIN GLARGINE UD 100 UNITS/ML SYR SUBCUT SCH (12:13)
[2018-06-01] MEDS: DIGOXIN 125MCG TABLET PO SCH (17:50)
[2018-06-01] MEDS: ATORVASTATIN CALCIUM 10MG TABLET PO SCH (21:41)
[2018-06-02] VITALS (13 sets, daily range): BP systolic 113–137; BP diastolic 59–81
[2018-06-02] MEDS: IPRATROPIUM/ALBUTEROL 0.5-3(2.5)MG/3ML NEB HHN SCH ×3 (04:41→12:48)
[2018-06-02] MEDS: SOTALOL HCL 80MG TABLET PO SCH (05:59)
[2018-06-02] MEDS: DILTIAZEM HCL 30MG TABLET PO SCH ×2 (05:59→13:17)
[2018-06-02 07:08] LABS: CHLORIDE 102 mEq/L (98-107)
[2018-06-02] MEDS: BLOOD SUGAR DIAGNOSTIC STRIP TEST SCH ×2 (07:33→12:09)
[2018-06-02 07:37] LABS: BASOPHILS % 0.6 % (0.0-2.0); EOSINOPHILS % 1.9 % (0.0-5.0); HEMATOCRIT. 28.5 % (36.0-48.0); HEMOGLOBIN. 9.5 g/dL (12.0-16.0); LYMPHOCYTES % 21.6 % (20.0-50.0); MEAN CORPUSCULAR VOLUME 87.2 fL (81.0-99.0); MEAN PLATELET VOLUME 8.2 fl (7.4-10.4); MONOCYTES % 8.8 % (2.0-8.0); NEUTROPHILS % 67.1 % (40.0-76.0); PLATELET 458 x1000/uL (130-400); RED BLOOD CELL COUNT 3.27 mill/uL (4.2-5.4); RED CELL DISTRIBUTION WIDTH 15.6 % (11.6-14.6)
[2018-06-02] MEDS: METRONIDAZOLE 500MG TABLET PO SCH (08:17)
[2018-06-02] MEDS: DOCUSATE SODIUM 100MG CAPSULE PO SCH (08:17)
[2018-06-02] MEDS: GUAIFENESIN 600MG ER TABLET PO SCH (08:17)
[2018-06-02] MEDS: LIDOCAINE 5% PATCH TOP SCH (08:17)
[2018-06-02] MEDS: BACLOFEN 10MG TABLET PO SCH (08:17)
[2018-06-02] MEDS: INSULIN LISPRO 100 UNITS/ML SUBCUT SCH ×2 (08:18→13:19)
[2018-06-02] MEDS: INSULIN GLARGINE UD 100 UNITS/ML SYR SUBCUT SCH (09:38)
[2018-06-02] MEDS: CEFEPIME 1,000 MG in DEXTROSE 5% WATER 50 ML IV SCH (12:31)
[2018-06-02] MEDS ORDERED: IPRATROPIUM/ALBUTEROL 0.5-3(2.5)MG/3ML NEB HHN SCH (18:00)
== END 2018-06-02 16:10 | DRG 871 ==
LOC: ER 15:01 → EDBEDREQTM 18:21 → EDBEDREQ 19:06 → EDBEDREQTM 19:06 → ENRESERV 20:07 → 8WST 20:07 → MICUSO 05-18 18:56 → 5EST 05-26 18:12
PROVIDERS: ADMIT Internal Medicine Nephrology; ATTEND Internal Medicine Nephrology
PROC: 0W9930Z Drainage of Right Pleural Cavity with Drainage Device, Percutaneous Approach (ICD-10-PCS; principal; 2018-05-19)
PROC: 30233L1 Transfusion of Nonautologous Fresh Plasma into Peripheral Vein, Percutaneous Approach (ICD-10-PCS; 2018-05-19)
PROC: 30233K1 Transfusion of Nonautologous Frozen Plasma into Peripheral Vein, Percutaneous Approach (ICD-10-PCS; 2018-05-19)
PROC: 30233N1 Transfusion of Nonautologous Red Blood Cells into Peripheral Vein, Percutaneous Approach (ICD-10-PCS; 2018-05-19)
PROC: 0BPQX0Z Removal of Drainage Device from Pleura, External Approach (ICD-10-PCS; 2018-06-01)
DX: A41.9 Sepsis, unspecified organism (principal); J18.9 Pneumonia, unspecified organism; E43 Unspecified severe protein-calorie malnutrition; J96.00 Acute respiratory failure, unspecified whether with hypoxia or hypercapnia; S27.2XXA Traumatic hemopneumothorax, initial encounter; I63.9 Cerebral infarction, unspecified; S22.41XA Multiple fractures of ribs, right side, initial encounter for closed fracture; N39.0 Urinary tract infection, site not specified; D68.9 Coagulation defect, unspecified; E87.1 Hypo-osmolality and hyponatremia; J98.11 Atelectasis; E11.9 Type 2 diabetes mellitus without complications; M48.061 Spinal stenosis, lumbar region without neurogenic claudication; D17.9 Benign lipomatous neoplasm, unspecified; I48.0 Paroxysmal atrial fibrillation; T45.515A Adverse effect of anticoagulants, initial encounter; W18.30XA Fall on same level, unspecified, initial encounter; D63.8 Anemia in other chronic diseases classified elsewhere; E78.5 Hyperlipidemia, unspecified; R33.9 Retention of urine, unspecified; I48.2 Chronic atrial fibrillation; I11.9 Hypertensive heart disease without heart failure; K59.00 Constipation, unspecified; G90.8 Other disorders of autonomic nervous system; M47.892 Other spondylosis, cervical region; K76.0 Fatty (change of) liver, not elsewhere classified; X58.XXXA Exposure to other specified factors, initial encounter; Y93.89 Activity, other specified; Y92.89 Other specified places as the place of occurrence of the external cause; Y99.8 Other external cause status; Z79.01 Long term (current) use of anticoagulants; Z79.4 Long term (current) use of insulin; Z87.891 Personal history of nicotine dependence; Z68.24 Body mass index [BMI] 24.0-24.9, adult; Z79.84 Long term (current) use of oral hypoglycemic drugs; Z79.899 Other long term (current) drug therapy
CPT/HCPCS: 36415; 70450; 70553; 71045; 71250; 72141; 72146; 72148; 73030; 74018; 76700; 80048; 80053; 80061; 80076; 80162; 80305; 81003; 82270; 82550; 82553; 82728; 82962; 83540; 83550; 83605; 83735; 83880; 84100; 84443; 84484; 85014; 85018; 85025; 85610; 86705; 86709; 86803; 86850; 86900; 86920; 86927; 87040; 87086; 87340; 93005; 93306; 93970; 94640; 96361; 96365; 96366; 96368; 96375; 97110; 97116; 97162; 97530; 99285; A6261; A9577; G0482; J0692; J0696; J1160; J1650; J1815; J2060; J2250; J2270; J2405; J2543; J3370; J3490; J7030; J7050; J7060; J7608; J7620; P9016; P9017; A4315